=== PATIENT | male | born 1950 | race Caucasian/White ===

== ENCOUNTER 2018-02-13 12:23 | Emergency (ER) | payer OTHER, MEDICAID ==
[~2018-02-13] VITALS: Ht 160 cm; Wt 65.8 kg
[~2018-02-13 12:23] MED LIST: ASPI-1155 PO; BENA10TA2 PO
[2018-02-13 12:29] VITALS: BP_SYST 137
--- NOTE | 2018-02-13 12:30 | NUR ---
Patient to ER bed 02 to gown for evaluation. Side rails up.
--- NOTE | 2018-02-13 12:32 | NUR ---
Pt brought by self, A&Ox4, pt presents to ER with L ear discomfort, hearing loss left ear, pt describes like water on L ear, skin pink and warm, cap refill <3, VS WNL, respirations even and unlabored, cap refill <3.
--- NOTE | 2018-02-13 12:40 | NUR ---
Dr Traylor at bedside examining patient
--- NOTE | 2018-02-13 12:56 | NUR ---
Patient given written and verbal discharge instructions and verbalizes understanding. ER MD discussed with patient the results and treatment provided. Patient in stable condition. ID arm band removed. Rx of Prednisone, flonase, given. Patient educated on pain management and to follow up with PMD. Pain Scale 2/10 tolerable for pt. Opportunity for questions provided and answered. Medication side effect fact sheet provided.
== END 2018-02-13 12:56 | disposition home or self-care (01) ==
LOC: SED 12:23
DX: J30.9 Allergic rhinitis, unspecified (principal); R03.0 Elevated blood-pressure reading, without diagnosis of hypertension; I10 Essential (primary) hypertension; Z79.82 Long term (current) use of aspirin; Z79.899 Other long term (current) drug therapy
CPT/HCPCS: 99283

== ENCOUNTER 2018-08-30 17:53 | Emergency (ER) | payer OTHER, MEDICAID ==
[~2018-08-30] VITALS: Ht 160 cm; Wt 78.0 kg
[~2018-08-30 17:53] MED LIST changes: -BENA10TA2 PO; +BENA10TA9 PO
[2018-08-30 18:01] VITALS: BP_SYST 124
[2018-08-30] MEDS ORDERED: ACETAMINOPHEN 500 MG TABLET PO ONE (18:30)
[2018-08-30] MEDS ORDERED: ONDANSETRON HCL 4 MG/2 ML VIAL IVP ONE (18:30)
[2018-08-30 18:47] LABS: BASOPHILS % (AUTO) 0.5 % (0.0-2.0); EOSINOPHILS # (AUTO) 0.1 K/uL (0.0-0.4); EOSINOPHILS % (AUTO) 2.2 % (0.0-4.0); HEMATOCRIT 44.3 % (36-54); HEMOGLOBIN 14.8 g/dL (14.0-18.0); LYMPHOCYTES # (AUTO) 1.9 K/uL (1.0-5.5); LYMPHOCYTES % (AUTO) 31.5 % (20.5-51.5); MEAN CORPUSCULAR HEMOGLOBIN 32 pg (27-31); MEAN CORPUSCULAR HGB CONC 34 % (32-36); MEAN CORPUSCULAR VOLUME 96 fL (79.0-98.0); MONOCYTES # (AUTO) 0.5 K/uL (0.0-1.0); MONOCYTES % (AUTO) 7.9 % (1.7-9.3); NEUTROPHILS # (AUTO) 3.5 K/uL (1.8-7.7); NEUTROPHILS % (AUTO) 57.9 % (40.0-70.0); PLATELET COUNT (AUTO) 212 K/uL (130-430); RED BLOOD CELL COUNT(AUTO) 4.63 MIL/uL (4.2-6.2); RED CELL DISTRIBUTION WIDTH 14.2 % (9.0-15.0); WHITE BLOOD COUNT (AUTO) 6.1 K/uL (4.8-10.8)
[2018-08-30 19:04] LABS: CALCIUM 9.1 mg/dL (8.4-11.0); CREATININE 0.88 mg/dL (0.55-1.30); POTASSIUM 4.2 mmol/L (3.5-5.1)
[2018-08-30 19:09] LABS: ALBUMIN 3.4 g/dL (3.4-4.8); TOTAL BILIRUBIN 0.2 mg/dL (0.0-1.0)
[2018-08-30 19:17] LABS: PROTHROMBIN TIME 9.8 SECS (9.5-12.5)
[2018-08-30 22:14] VITALS: BP_SYST 120
== END 2018-08-30 22:14 | disposition home or self-care (01) ==
LOC: SED 17:53
DX: H11.31 Conjunctival hemorrhage, right eye (principal); R51 Headache; I10 Essential (primary) hypertension; Z79.82 Long term (current) use of aspirin; Z79.899 Other long term (current) drug therapy
CPT/HCPCS: 36415; 70450; 71045; 80053; 84484; 85025; 85610; 85730; 93005; 96374; 99284; J2405